=== PATIENT | male | born 1955 | race Caucasian/White ===

== ENCOUNTER 2018-08-05 03:58 | Inpatient (IN) | payer MEDICARE, BC ==
[~2018-08-05] VITALS: Ht 180.3 cm; Wt 144.5 kg
[2018-08-05] MEDS ORDERED: ASPI-515 PO (04:33)
[2018-08-05] MEDS ORDERED: ENOX120S5 SQ (04:33)
[2018-08-05] MEDS ORDERED: ATOR10TA9 PO (04:33)
[2018-08-05] MEDS ORDERED: GLIM2TAB2 PO (04:33)
[2018-08-05] MEDS ORDERED: SERT100T32 PO (04:33)
[2018-08-05] MEDS ORDERED: WARF10TA43 PO (04:33)
[2018-08-05] MEDS ORDERED: METF500T17 PO (04:33)
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
[2018-08-05] MEDS ORDERED: MORPHINE SULFATE 4 MG/ML, 1ML ONE ×2 (04:50→08:13)
[2018-08-05] MEDS ORDERED: ONDANSETRON 2MG/ML, 2ML ONE (04:50)
--- NOTE | 2018-08-05 04:52 | NUR ---
PT TAKEN TO IMAGING.
[2018-08-05] MEDS ORDERED: ONDANSETRON 2MG/ML, 2ML IVPush ONE (05:00)
[2018-08-05] MEDS ORDERED: SODIUM CHLORIDE FLUSH 10ML SYR IVF ONE (05:00)
[2018-08-05] MEDS: MORPHINE SULFATE 4 MG/ML, 1ML IVPush PRN ×2 (05:16→08:16)
--- NOTE | 2018-08-05 05:20 | NUR ---
PT BACK FROM IMAGING. PIV STARTED 20G IN RAC. PT MEDICATED PER EMAR WITH ZOFRAN 4MG AND MORPHINE 4MG IVP.
[2018-08-05 05:29] LABS: BASOPHILS # (AUTO) 0.02 x10^3/uL (0-0.1); BASOPHILS % (AUTO) 0 % (0-1); EOSINOPHILS # (AUTO) 0.34 x10^3/uL (0-0.4); EOSINOPHILS % (AUTO) 4 % (1-7); LYMPHOCYTES # (AUTO) 1.17 x10^3/uL (1-3.4); LYMPHOCYTES % (AUTO) 13 % (22-44); MD NO; MEAN CORPUSCULAR HEMOGLOBIN 29.1 pg (27.5-34.5); MEAN CORPUSCULAR HGB CONC 33.2 g/dL (33.2-36.2); MEAN CORPUSCULAR VOLUME 87.8 fL (81-97); MEAN PLATELET VOLUME 9.5 fL (7.4-10.4); MONOCYTES % (AUTO) 7 % (2-9); NEUTROPHILS # (AUTO) 7.11 x10^3/uL (1.8-6.8); NEUTROPHILS % (AUTO) 77 % (42-75); PLATELET COUNT 139 x10^3/uL (130-400); RED BLOOD COUNT 4.19 x10^6/uL (4.38-5.82)
[2018-08-05 05:40] LABS: ALBUMIN 3.7 g/dL (3.4-5.0); ANION GAP 7 mmol/L (5-15); CALCIUM 8.7 mg/dL (8.5-10.1); CHLORIDE 104 mmol/L (98-107)
[2018-08-05 05:46] LABS: CREATININE 0.95 mg/dL (0.7-1.3); TROPONIN I < 0.015 ng/mL (0.000-0.045)
--- NOTE | 2018-08-05 05:47 | NUR ---
PT STATES "HEADACHE IS BETTER BUT MY NECK IS STILL STIFF."
[2018-08-05] MEDS ORDERED: METOCLOPRAMIDE 5 MG/ML, 2ML IVPush ONE (06:00)
[2018-08-05] MEDS ORDERED: DIPHENHYDRAMINE 50 MG/ML, 1ML ONE (06:00)
[2018-08-05] MEDS ORDERED: DIPHENHYDRAMINE 50 MG/ML, 1ML IVPush ONE (06:00)
[2018-08-05] MEDS ORDERED: METOCLOPRAMIDE 5 MG/ML, 2ML ONE (06:01)
--- NOTE | 2018-08-05 06:09 | NUR ---
PT MEDICATED PER EMAR WITH REGLAN 10MG AND BENADRYL 25MG IVP. VSS. UPDATED ON POC. AT BEDSIDE. PT SLEEPING INTERMITTENTLY.
[2018-08-05] MEDS ORDERED: ENALAPRILAT 1.25 MG/ML, 1ML ONE (06:16)
--- NOTE | 2018-08-05 06:26 | NUR ---
PT MEDICATED PER EMAR WITH VASOTEC 1.25MG IVP.
[2018-08-05] MEDS ORDERED: ENALAPRILAT 1.25 MG/ML, 2ML IV ONE (06:30)
--- NOTE | 2018-08-05 06:51 | NUR ---
REPORT TO [facility].
--- NOTE | 2018-08-05 08:19 | NUR ---
LAKIA RN: SONJA HERRERA AT BEDSIDE TO REASSESS, PT IN BED, FAMILY AT BEDSIDE, PT AMBULATED INDEPENDENTLY W/O COMPLICATION TO RESTROOM AND BACK. PRIMARY RN CAS UPDATED ON CARE PLAN
[2018-08-05] MEDS ORDERED: DIAZEPAM 5 MG TABLET PO ONE (08:30)
[2018-08-05] MEDS ORDERED: hydrALAzine 20 MG/ML, 1ML IV ONE (08:30)
[2018-08-05] MEDS ORDERED: DIAZEPAM 5 MG TABLET ONE (08:37)
[2018-08-05] MEDS ORDERED: hydrALAzine 20 MG/ML, 1ML ONE ×2 (08:37→17:43)
[2018-08-05] MEDS ORDERED: LABETALOL 5MG/ML, 20ML IVPush ONE (10:30)
--- NOTE | 2018-08-05 10:48 | NUR ---
PT ON HOSPITAL BED. NO ACUTE S/S OF DISTRESS.
--- NOTE | 2018-08-05 11:10 | NUR ---
sbar to augustus ledesma via telephone
[2018-08-05 11:35] VITALS: BP 164/97
[2018-08-05] MEDS ORDERED: SODIUM CHLORIDE 0.9% 1,000 ML IV SCH (11:57)
[2018-08-05] MEDS ORDERED: ACETAMINOPHEN 325 MG TABLET PO PRN (12:00)
[2018-08-05] MEDS ORDERED: hydrALAzine 20 MG/ML, 1ML IVPush PRN (12:00)
[2018-08-05] MEDS: INSULIN LISPRO 100 UNITS/ML, PEN SQ-INSULIN SCH ×3 (12:00→21:33)
[2018-08-05] MEDS ORDERED: LABETALOL 5MG/ML, 20ML IVPush PRN (12:00)
[2018-08-05] MEDS ORDERED: morphine SULFATE 10 MG/ML, 1ML IVPush PRN (12:00)
[2018-08-05 12:02] VITALS: BP 156/90
[2018-08-05] MEDS: LISINOPRIL 20 MG TABLET PO SCH ×2 (12:41→21:32)
[2018-08-05 13:04] LABS: INTERNATIONAL NORMALIZED RATIO 1.05 (0.93-1.1)
[2018-08-05 13:12] LABS: HEMOGLOBIN A1C 8.4 % (4.2-6.3)
[2018-08-05] MEDS ORDERED: THROMBIN 20,000 UNIT VIAL TP ONE (15:56)
[2018-08-05] MEDS ORDERED: HEPARIN 1,000 UNITS/ML, 10ML ONE (15:56)
[2018-08-05] MEDS ORDERED: PROTAMINE SULFATE 10 MG/ML, 5ML ONE (15:56)
[2018-08-05] MEDS ORDERED: BUPIVACAINE/PF-EPI 0.5% 1:200K ONE (15:56)
[2018-08-05] MEDS ORDERED: SUCCINYLCHOLINE 20 MG/ML, 10ML ONE (16:33)
[2018-08-05] MEDS ORDERED: PROPOFOL 10 MG/ML, 20ML ONE (16:33)
[2018-08-05] MEDS ORDERED: EPINEPHRINE SYRINGE 0.1 MG/ML, 10ML ONE (16:33)
[2018-08-05] MEDS ORDERED: EPHEDRINE 50 MG/ML, 1ML ONE (16:33)
[2018-08-05] MEDS ORDERED: CEFAZOLIN 1,000 MG ONE (16:33)
[2018-08-05] MEDS ORDERED: GLYCOPYRROLATE 0.2MG/1ML, 5ML ONE (16:33)
[2018-08-05] MEDS ORDERED: NEOSTIGMINE 1 MG/ML, 10ML ONE (16:33)
[2018-08-05] MEDS ORDERED: ROCURONIUM 10MG/ML,5ML ONE (16:33)
[2018-08-05] MEDS ORDERED: FENTANYL PF 250 MCG/5ML ONE (16:38)
[2018-08-05] MEDS ORDERED: BUPIVACAINE/PF-EPI 0.5% 1:200K INFIL ONE (16:49)
[2018-08-05] MEDS ORDERED: THROMBIN 5,000 UNIT VIAL TP ONE (16:50)
[2018-08-05] MEDS ORDERED: BACITRACIN 50,000 UNIT IRRIG ONE (16:50)
[2018-08-05] MEDS ORDERED: OXYcodone 5 MG/5 ML ORAL.SOL UDC PO PRN (17:00)
[2018-08-05] MEDS ORDERED: METOCLOPRAMIDE 5 MG/ML, 2ML IV PRN (17:00)
[2018-08-05] MEDS ORDERED: LABETALOL 5MG/ML, 20ML IV PRN (17:00)
[2018-08-05] MEDS ORDERED: HYDROmorphone 1 MG/ML, 1ML INJ IV PRN (17:00)
[2018-08-05] MEDS ORDERED: PROMETHAZINE 25 MG/ML, 1ML IV PRN (17:00)
[2018-08-05] MEDS ORDERED: MEPERIDINE/PF 25MG/0.5ML IVPush PRN (17:00)
[2018-08-05] MEDS ORDERED: ALBUTEROL SULFATE 2.5 MG/3 ML NPPB PRN (17:00)
[2018-08-05] MEDS ORDERED: KETOROLAC 30 MG/1 ML IV PRN (17:00)
[2018-08-05] MEDS ORDERED: FENTANYL PF 100 MCG/2ML IV PRN (17:00)
[2018-08-05] MEDS ORDERED: ONDANSETRON 2MG/ML, 2ML IVPush PRN (17:00)
[2018-08-05] MEDS: hydrALAzine 20 MG/ML, 1ML IV PRN ×2 (17:46→18:14)
[2018-08-05] MEDS ORDERED: OXYcodone 5 MG/5 ML ORAL.SOL UDC ONE (19:06)
[2018-08-05 20:08] VITALS: BP 144/81
[2018-08-05] MEDS: ATORVASTATIN 80 MG TABLET PO SCH (21:32)
[2018-08-06 00:05] VITALS: BP 127/76
[2018-08-06 01:00] VITALS: BP 135/81
[2018-08-06 03:07] VITALS: BP 135/82
[2018-08-06 05:11] LABS: BASOPHILS # (AUTO) 0.07 x10^3/uL (0-0.1); BASOPHILS % (AUTO) 1 % (0-1); EOSINOPHILS # (AUTO) 0.16 x10^3/uL (0-0.4); EOSINOPHILS % (AUTO) 2 % (1-7); LYMPHOCYTES # (AUTO) 1.01 x10^3/uL (1-3.4); LYMPHOCYTES % (AUTO) 10 % (22-44); MD NO; MEAN CORPUSCULAR HEMOGLOBIN 28.9 pg (27.5-34.5); MEAN CORPUSCULAR HGB CONC 32.9 g/dL (33.2-36.2); MEAN CORPUSCULAR VOLUME 87.8 fL (81-97); MEAN PLATELET VOLUME 8.8 fL (7.4-10.4); MONOCYTES # (AUTO) 0.68 x10^3/uL (0.2-0.8); MONOCYTES % (AUTO) 7 % (2-9); NEUTROPHILS # (AUTO) 8.46 x10^3/uL (1.8-6.8); NEUTROPHILS % (AUTO) 82 % (42-75); PLATELET COUNT 136 x10^3/uL (130-400); RED BLOOD COUNT 4.01 x10^6/uL (4.38-5.82); RED CELL DISTRIBUTION WIDTH 14.6 % (9.4-14.8)
[2018-08-06 05:22] LABS: CHLORIDE 104 mmol/L (98-107)
[2018-08-06 05:36] LABS: ALANINE AMINOTRANSFERASE 27 U/L (12-78); ALBUMIN 3.3 g/dL (3.4-5.0); ALKALINE PHOSPHATASE 68 U/L (45-117); ANION GAP 7 mmol/L (5-15); BILIRUBIN,TOTAL 1.2 mg/dL (0.2-1.0); CALCIUM 8.4 mg/dL (8.5-10.1); CREATININE 0.98 mg/dL (0.7-1.3); TOTAL PROTEIN 6.6 g/dL (6.4-8.2)
[2018-08-06 07:58] VITALS: BP 156/83
[2018-08-06] MEDS: ASPIRIN 81 MG TABLET EC PO SCH (08:01)
[2018-08-06] MEDS: SERTRALINE 100MG TABLET PO SCH (08:02)
[2018-08-06] MEDS: OXYcodone IR 5MG TABLET PO PRN ×2 (08:02→21:43)
[2018-08-06] MEDS: LISINOPRIL 20 MG TABLET PO SCH ×2 (08:02→21:42)
[2018-08-06] MEDS: INSULIN LISPRO 100 UNITS/ML, PEN SQ-INSULIN SCH ×4 (08:03→21:44)
[2018-08-06] MEDS: ENOXAPARIN 40 MG/0.4 ML SQ SCH (08:03)
[2018-08-06 12:59] VITALS: BP 132/80
[2018-08-06 20:52] VITALS: BP 139/84
[2018-08-06] MEDS ORDERED: DOCUSATE 100 MG CAPSULE PO PRN (21:30)
[2018-08-06] MEDS ORDERED: DOCUSATE 100 MG CAPSULE ONE (21:36)
[2018-08-06] MEDS: ATORVASTATIN 80 MG TABLET PO SCH (21:43)
[2018-08-07 01:38] VITALS: BP 157/76
[2018-08-07 05:09] LABS: BASOPHILS # (AUTO) 0.05 x10^3/uL (0-0.1); BASOPHILS % (AUTO) 1 % (0-1); EOSINOPHILS # (AUTO) 0.45 x10^3/uL (0-0.4); EOSINOPHILS % (AUTO) 6 % (1-7); LYMPHOCYTES # (AUTO) 1.31 x10^3/uL (1-3.4); LYMPHOCYTES % (AUTO) 18 % (22-44); MD NO; MEAN CORPUSCULAR HEMOGLOBIN 27.8 pg (27.5-34.5); MEAN CORPUSCULAR HGB CONC 31.4 g/dL (33.2-36.2); MEAN CORPUSCULAR VOLUME 88.4 fL (81-97); MEAN PLATELET VOLUME 8.7 fL (7.4-10.4); MONOCYTES % (AUTO) 7 % (2-9); NEUTROPHILS # (AUTO) 5.11 x10^3/uL (1.8-6.8); NEUTROPHILS % (AUTO) 69 % (42-75); PLATELET COUNT 143 x10^3/uL (130-400); RED BLOOD COUNT 4.08 x10^6/uL (4.38-5.82); RED CELL DISTRIBUTION WIDTH 14.4 % (9.4-14.8)
[2018-08-07 05:13] LABS: ALANINE AMINOTRANSFERASE 24 U/L (12-78); ALBUMIN 3.1 g/dL (3.4-5.0); ANION GAP 8 mmol/L (5-15); CALCIUM 8.5 mg/dL (8.5-10.1); CHLORIDE 106 mmol/L (98-107); CREATININE 0.89 mg/dL (0.7-1.3)
[2018-08-07 05:15] LABS: ALKALINE PHOSPHATASE 68 U/L (45-117); BILIRUBIN,TOTAL 0.9 mg/dL (0.2-1.0); TOTAL PROTEIN 6.6 g/dL (6.4-8.2)
[2018-08-07 07:56] VITALS: BP 128/79
[2018-08-07] MEDS: LISINOPRIL 20 MG TABLET PO SCH (07:58)
[2018-08-07] MEDS: ASPIRIN 81 MG TABLET EC PO SCH (07:58)
[2018-08-07] MEDS: SERTRALINE 100MG TABLET PO SCH (07:58)
[2018-08-07] MEDS: ENOXAPARIN 40 MG/0.4 ML SQ SCH (07:59)
[2018-08-07] MEDS: INSULIN LISPRO 100 UNITS/ML, PEN SQ-INSULIN SCH ×2 (08:05→11:21)
[2018-08-07] MEDS ORDERED: metFORMIN 500 MG TABLET PO SCH (09:00)
[2018-08-07] MEDS ORDERED: ACET325T14 PO (11:08)
[2018-08-07] MEDS ORDERED: LISI-170 PO (11:08)
[2018-08-07 12:59] VITALS: BP 129/82
[2018-08-07] MEDS ORDERED: TRAM50TA2 PO (15:54)
== END 2018-08-07 16:05 | disposition home or self-care (01) | DRG 908 ==
LOC: ED 06:20 → EDIP 10:38 → 4EST 11:22 → DCLOUNGE 08-07 15:50
PROVIDERS: ADMIT Internal Medicine; ATTEND Internal Medicine
PROC: 0JC40ZZ Extirpation of Matter from Right Neck Subcutaneous Tissue and Fascia, Open Approach (ICD-10-PCS; 2018-08-05)
PROC: 0W360ZZ Control Bleeding in Neck, Open Approach (ICD-10-PCS; principal; 2018-08-05 16:00)
DX: L76.32 Postprocedural hematoma of skin and subcutaneous tissue following other procedure (principal); Z68.41 Body mass index [BMI] 40.0-44.9, adult; I16.0 Hypertensive urgency; D64.9 Anemia, unspecified; E11.9 Type 2 diabetes mellitus without complications; F41.9 Anxiety disorder, unspecified; F32.9 Major depressive disorder, single episode, unspecified; R22.1 Localized swelling, mass and lump, neck; Y83.8 Other surgical procedures as the cause of abnormal reaction of the patient, or of later complication, without mention of misadventure at the time of the procedure; Y82.8 Other medical devices associated with adverse incidents; E66.01 Morbid (severe) obesity due to excess calories; Z86.711 Personal history of pulmonary embolism; Z86.73 Personal history of transient ischemic attack (TIA), and cerebral infarction without residual deficits; Z86.718 Personal history of other venous thrombosis and embolism; Z79.01 Long term (current) use of anticoagulants; Z90.49 Acquired absence of other specified parts of digestive tract
CPT/HCPCS: 36415; 70450; 70498; 71045; 80048; 80053; 82040; 82962; 83036; 83735; 84484; 85014; 85018; 85025; 85610; 85730; 93005; 96374; 96375; 96376; C1729; G0378; J0690; J1644; J1650; J2405; J2704; J2710; J2720; J3010; J0330; J0360; J1200; J1815; J2765; J7030